=== PATIENT | female | born 1985 | race Caucasian/White ===

== ENCOUNTER 2017-10-30 01:06 | Emergency (ER) | payer OTHER ==
[~2017-10-30] VITALS: Ht 165.1 cm; Wt 102.1 kg
[2017-10-30] MEDS ORDERED: VENL150ER PO (01:20)
[2017-10-30] MEDS ORDERED: TOPI25 PO (01:20)
[2017-10-30] MEDS ORDERED: NIKKI 3 MG-0.01 EACH PO (01:20)
== END 2017-10-30 03:57 | disposition home or self-care (01) ==
LOC: ER 01:06
DX: H53.8 Other visual disturbances (principal); T42.6X5A Adverse effect of other antiepileptic and sedative-hypnotic drugs, initial encounter; Z79.899 Other long term (current) drug therapy; F17.210 Nicotine dependence, cigarettes, uncomplicated
CPT/HCPCS: 70450; 99284

== ENCOUNTER → 2018-02-22 | Outpatient (CLI) | payer OTHER ==
[~2018-02-22] MED LIST: NIKKI 3 MG-0.01 EACH PO; TOPI25 PO; VENL150ER PO
[2018-02-23 14:30] LABS: Candida species (DNA Probe) Negative (NEGATIVE); G. vaginalis (DNA Probe) Negative (NEGATIVE); T. vaginalis (DNA Probe) Negative (NEGATIVE)
== END | disposition home or self-care (01) ==
LOC: LAB SHORT 16:00 → LAB 16:00
PROVIDERS: Physician Assistant
DX: N89.8 Other specified noninflammatory disorders of vagina (principal)
CPT/HCPCS: 87480; 87510; 87660

== ENCOUNTER → 2024-07-03 | Outpatient (CLI) | payer BC | LOC: LAB SHORT 10:20 → LAB 10:20 | DX: L02.211 Cutaneous abscess of abdominal wall (principal) | CPT/HCPCS: 87070; 87077; 87186; 87205 ==

== ENCOUNTER → 2024-08-04 | Outpatient (CLI) | payer BC | LOC: LAB SHORT 14:17 → LAB 14:17 | DX: R30.0 Dysuria (principal) | CPT/HCPCS: 87086 ==

== ENCOUNTER → 2025-02-04 | Outpatient (CLI) | payer BC ==
[~2025-02-04] MED LIST changes: +AFRIN15 M1; +CLON.5 PO; +DESV50 PO; +Loratadine10 MG PO; +MONT10T PO; +OMEP20ER PO; +Oxcarbazepine300 MG PO; +TIZA4 PO; +ZEPBOUND2.5 MG/0.5 SC
[2025-02-04 10:49] LABS: Source, Urine Clean Catch
[2025-02-04 14:18] LABS: Appearance, Urine Clear (Clear); Blood, Urine Neg (Neg); Color, Urine Yellow (P-Yellow); Glucose Qualitative, Urine Neg (Neg); Ketones, Urine Neg (Neg); Leukocyte Esterase, Urine Neg (Neg); Nitrite, Urine Neg (Neg); Protein, Urine 2+ (Neg); Urobilinogen, Urine 1+ (Normal)
[2025-02-04 14:33] LABS: Bilirubin, Urine 1+ (Neg)
[2025-02-04 14:34] LABS: Bacteria Many /hpf; Squamous Epithelial Cells Rare /hpf (Few); White Blood Cells, Urine 0-2 /hpf (0-5)
== END ==
LOC: LAB 10:47 → LAB SHORT 10:47
PROVIDERS: Obstetrics & Gynecology
DX: Z01.812 Encounter for preprocedural laboratory examination (principal)
CPT/HCPCS: 81001; 87086

== ENCOUNTER 2025-02-10 11:10 | Day surgery (SDC) | payer BC ==
[~2025-02-10] VITALS: Ht 165.1 cm; Wt 137.1 kg
[~2025-02-10 11:10] MED LIST changes: +Lactated Ringer's 1,000 ML IV SCH
[2025-02-10] MEDS ORDERED: ALLER-CORT16.9 ML NS (11:39)
[2025-02-10] MEDS ORDERED: PHENA200 PO (11:41)
[2025-02-10] MEDS ORDERED: HYDPAM100 PO (11:42)
[2025-02-10 11:43] VITALS: BP 131/74
[2025-02-10] MEDS ORDERED: propofoL 20 ML IV ONE (11:49)
[2025-02-10] MEDS ORDERED: Ketorolac Tromethamine 30mg Vial ONE (11:56)
[2025-02-10] MEDS ORDERED: FentaNYL Citrate 50 MCG/ML 2 ML Injection ONE (11:56)
[2025-02-10] MEDS ORDERED: Dexamethasone Sod Phos 10 MG/ML 1ML VIAL ONE (11:56)
[2025-02-10] MEDS ORDERED: Ondansetron HCl 2 MG / ML 2ML Vial ONE (11:56)
--- NOTE | 2025-02-10 11:59 | NUR ---
Ambulatory in Day Surgery. History, Chart, Medications and Allergies reviewed before start of procedure. Lungs clear T/O to Auscultation. Patient confirms NPO status and agrees with scheduled surgery. Pre-Op teaching done. Pt verbalizes understanding. Patient States Post-Procedure ride home has been arranged. PT BELONGINGS PLACED UNDERNEATH [facility] FOR SAFEKEEPING.
[2025-02-10] MEDS ORDERED: Silver Nitr/Potassium Nitrate 1 EA APPL ONE ×2 (13:00→13:30)
[2025-02-10 13:23] VITALS: BP 149/83
--- NOTE | 2025-02-10 13:27 | NUR ---
02/10/25 1322 Annika Buitrago FLUID DEFICIT 50ML
[2025-02-10 13:29] VITALS: BP 121/97
[2025-02-10 13:38] VITALS: BP 134/81
--- NOTE | 2025-02-10 13:39 | NUR ---
REPORT RECEIVED FROM CRISTI PADGETT. VSS. PT ON RA. PT A&OX4. PT ABLE TO REPOSITION SELF IN BED. PT REQUESTING PO FOOD AND FLUIDS AND TOLERATING THEM WELL. PT REPORTS ABD CRAMPING THAT IS TOLERABLE. PT DENIES NAUSEA OR OTHER DISCOMFORTS. PT HAS PERIPAD IN PLACE WITH MINIMAL BLOOD DRAINAGE NOTED.
[2025-02-10 13:53] VITALS: BP 132/85
--- NOTE | 2025-02-10 14:05 | NUR ---
Patient up to Ambulate independently. Gait steady. VSS AND CONSISTENT WITH PT BASELINE. PT HAS NO COMPLAINTS AND VERBALIZES READINESS TO GO HOME. Discharge instructions reviewed with patient. Patient verbalizes understanding. Copy given to patient to take home. AIMEE PAD REMAINS IN PLACE WITH MINIMAL DRAINAGE NOTED. Patient States Post-Procedure ride home has been arranged. Discharged via wheelchair to private car for ride home. PT BELONGINGS RETURNED TO PT.
== END 2025-02-10 14:05 | disposition home or self-care (01) ==
LOC: ORSCMMR 11:10 → ORD 12:30 → ORSCMMR 14:05 → ORD 15:00
PROVIDERS: Obstetrics & Gynecology
PROC: 0UDB8ZX Extraction of Endometrium, Via Natural or Artificial Opening Endoscopic, Diagnostic (ICD-10-PCS; principal; 2025-02-10 12:00)
DX: N84.0 Polyp of corpus uteri (principal); K21.9 Gastro-esophageal reflux disease without esophagitis; E66.01 Morbid (severe) obesity due to excess calories; Z68.43 Body mass index [BMI] 50.0-59.9, adult
CPT/HCPCS: 88305; A9270; J1100; J1885; J2405; J2704; J3010; J7120

== ENCOUNTER 2025-06-12 00:26 | Observation (INO) | payer BC ==
[~2025-06-12] VITALS: Ht 165.1 cm; Wt 129.3 kg
[~2025-06-12 00:26] MED LIST changes: +ALLER-CORT16.9 ML NS; +HYDPAM100 PO; -Lactated Ringer's 1,000 ML IV SCH; +PHENA200 PO
[2025-06-12 00:44] VITALS: BP 150/90
[2025-06-12 02:06] LABS: BASOPHILS ABSOLUTE AUTO 0.03 K/mm3 (0.00-0.23); BASOPHILS PERCENT AUTO 0 % (0-2); EOSINOPHILS ABSOLUTE AUTO 0.09 K/mm3 (0.00-0.68); EOSINOPHILS PERCENT AUTO 1 % (0-6); Hematocrit 38.1 % (33.0-51.0); Hemoglobin 13.1 g/dL (11.5-16.0); IMMATURE GRAN ABSOLUTE AUTO 0.09 K/mm3 (0.00-0.10); IMMATURE GRAN PERCENT AUTO 1 % (0-1); LYMPHOCYTES ABSOLUTE AUTO 2.24 K/mm3 (0.84-5.20); LYMPHOCYTES PERCENT AUTO 23 % (21-46); MONOCYTES ABSOLUTE AUTO 0.73 K/mm3 (0.16-1.47); MONOCYTES PERCENT AUTO 8 % (4-13); Mean Corpuscular HGB Conc 34.4 g/dL (31.5-36.5); Mean Corpuscular Volume 85 fL (80-100); NEUTROPHILS ABSOLUTE AUTO 6.49 K/mm3 (1.96-9.15); NEUTROPHILS PERCENT AUTO 67 % (41-73); NRBC ABSOLUTE 0.00 K/mm3 (0.00-0.02); NRBC Auto 0.0 /100 WBC (0.0-0.2); Platelet Count 254 K/mm3 (150-400); RDW Coefficient Variation 12.5 % (11.7-14.2); RDW Standard Deviation 38.8 fL (35.1-46.3)
[2025-06-12 02:22] LABS: Alanine Aminotransfer (ALT/SGP 29.0 U/L (12-78); Albumin, Blood 3.4 g/dL (3.4-5.0); Albumin/Globulin Ratio 1.0 (0.8-1.8); Anion Gap 11.0 mmol/L (3-11); Aspartate Aminotrans (AST/SGOT 21.0 U/L (12-37); Bilirubin, Total 0.5 mg/dL (0.1-1.0); Blood Urea Nitrogen 9.0 mg/dL (8-24); CO2, Blood 24.0 mmol/L (21-32); Calcium, Blood 9.0 mg/dL (8.5-10.1); Chloride, Blood 100.0 mmol/L (98-108); Creatinine, Blood 0.67 mg/dL (0.40-1.00); Ethanol (Alcohol), Blood, Med 5.0 mg/dL; Globulin, Blood 3.5 g/dL (2.2-4.0); Glucose, Blood 88.0 mg/dL (70-99); Potassium, Blood 3.6 mmol/L (3.5-5.5); Sodium, Blood 131.0 mmol/L (136-145); Thyroid Stimulating Hormone 2.87 uIU/mL (0.360-4.800); Total Protein, Blood 6.9 g/dL (6.4-8.2)
[2025-06-12 03:11] LABS: U Amphetamine Screen Not Detected; U Barbituate Screen Not Detected; U Benzodiazapine Screen Not Detected; U Buprenorphine Screen Not Detected; U Cannabinoids Screen Not Detected; U Cocaine Screen Not Detected; U Methadone Screen Not Detected; U Methamphetamine Screen Not Detected; U Opiates Screen Not Detected; U Oxycodone Screen Not Detected; U Phencyclidine Screen Not Detected
[2025-06-12] MEDS ORDERED: Ondansetron 4 MG SoluTab SL ONE (04:10)
[2025-06-12 08:24] LABS: Source, Urine Voided
[2025-06-12 08:35] LABS: Bilirubin, Urine Neg (Neg); Color, Urine Yellow (P-Yellow); Glucose Qualitative, Urine Neg (Neg); Ketones, Urine Neg (Neg); Leukocyte Esterase, Urine Neg (Neg); Protein, Urine 1+ (Neg); Specific Gravity, Urine 1.010 (1.003-1.022); Urobilinogen, Urine NORM (Normal)
[2025-06-12 08:54] LABS: White Blood Cells, Urine 0-2 /hpf (0-5)
[2025-06-12] MEDS ORDERED: Ondansetron HCl 2 MG / ML 2ML Vial ONE (10:15)
[2025-06-12] MEDS ORDERED: KETO10 PO (12:26)
== END 2025-06-12 11:10 | disposition other institution (70) ==
LOC: ER 00:26 → EOR 00:27
PROVIDERS: ADMIT Emergency Medicine
DX: F32.A Depression, unspecified (principal); F41.1 Generalized anxiety disorder; K21.9 Gastro-esophageal reflux disease without esophagitis; F17.210 Nicotine dependence, cigarettes, uncomplicated; Z88.0 Allergy status to penicillin; Z88.8 Allergy status to other drugs, medicaments and biological substances; Z79.899 Other long term (current) drug therapy
CPT/HCPCS: 80053; 80320; 81001; 84443; 84703; 85025; 93005; 93010; 99285-25; A9270; G0378; J2405

== ENCOUNTER 2025-06-12 08:25 | Inpatient (IN) | payer BC ==
[~2025-06-12] VITALS: Ht 165.1 cm; Wt 127.5 kg
[2025-06-12] MEDS ORDERED: Aluminum Hydroxide 320MG/5ML 473 ML PO PRN (11:25)
[2025-06-12 11:29] VITALS: BP 141/88
[2025-06-12] MEDS ORDERED: Polyethylene Glycol 3350 17 gm PO PRN (11:30)
[2025-06-12] MEDS ORDERED: Ondansetron 4 MG SoluTab MM PRN (11:30)
[2025-06-12 11:49] VITALS: BP 141/88
[2025-06-12] MEDS ORDERED: KETO10 PO (12:26)
--- NOTE | 2025-06-12 17:08 | NUR ---
SHIFT SUMMARY NO ACUTE EVENTS SINCE ADMIT. PT DENIES SI, HI, AVTH AT THIS TIME. OUTSIDE INTERACTING W/ PEERS AT THIS TIME. PT STATED THAT SHE HAS INTERMITTENTLY DEALT W/ FLEETING SI T/O LIFE, BUT RECENTLY D/T "WORK PRESSURES" AND OTHER TRIGGERING EVENTS (PT DID NOT ELABORATE), CAUSED HER ANXIETY AND SI TO PEAK. STATES SHE HAS A STRONG SUPPORT SYSTEM WHO SHE CAN "USUALLY" RELY ON, BUT THIS TIME SHE HAD NOT REACHED OUT.
[2025-06-12 19:17] VITALS: BP 128/89
--- NOTE | 2025-06-13 04:26 | NUR ---
SHIFT SUMMARY: PT A/O X4. ENDORSES SI . PT STATES IT HAS BEEN GOING ON MORE LATELY WITH STRESSORS IN WORK AND LIFE. DENIES HI AND ATH. PT IS OPEN IN TALKING ABOUT HER ISSUES. HER SI IS IN PASSIVE THOUGHTS MOSTLY. SHE KNOWS THAT SHE WILL OVERCOME THIS ISSUE ONCE AGAIN. MOOD IS LABILE, AFFECT IS GUARDED. 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 PT EXPRESSES THAT THIS ILLNESS WILL NOT GET ANY BETTER WITH TIME. PT IS HAPPY THAT THE THE DOCTOR LISTENED TO HER AND PUT HER BACK ON PROZAC. SHE FEELS THIS WILL HELP HER. PT REQUESTED TO TAKE HER TRAZODONE AND MELATONIN FOR SLEEP. WILL CONTINUE TO MONITOR Q 15 MIN
[2025-06-13 07:53] LABS: CHOL/HDL RATIO 3.0; Cholesterol 136 mg/dL (50-200); HDL Cholesterol 46 mg/dL (>39); LDL/HDL RATIO 1.5; Low Density Lipoprotein Chol 69 mg/dL (0-110); Triglycerides 106 mg/dL (30-140); Very Low Density Lipoprot Chol 21 mg/dL (6-28)
[2025-06-13 08:32] VITALS: BP 121/75
[2025-06-13] MEDS ORDERED: Multivitamins 1 Tab PO SCH (09:00)
[2025-06-13] MEDS ORDERED: Oxymetazoline 0.05% Nasal Relief Spray 15mL BTL PRN (11:20)
[2025-06-13] MEDS ORDERED: Fluticasone 0.05% Nasal Spray PRN (11:30)
--- NOTE | 2025-06-13 16:52 | NUR ---
SHIFT SUMMARY DENIES SI, HI, AVTH AT THIS TIME. PLEASANT AND COOPERATIVE. ATTENDED GROUPS, ATE MEALS, AND WAS IN DAY ROOM WORKING ON PUZZLE. NO ACUTE EVENTS TODAY. TREATING CHRONIC BLADDER PAIN FOR PT PER DEC.
[2025-06-13 19:41] VITALS: BP 112/75
--- NOTE | 2025-06-14 05:04 | NUR ---
SHIFT SUMMARY: PATIENT WAS ON THE PATIO AT THE BEGINNING OF THE SHIFT, READING A BOOK. SHE WAS ABLE TO ANSWER INSTRUMENTATION AND CONTROLS TECHNICIAN QUESTIONS IN A LOGICAL AND LINEAR MANNER. SHE STATED THAT SHE "NEVER DID FEEL SUICIDAL, BUT IT'S THIS LOW UNDERLYING THING THAT'S ALWAYS THERE. I DON'T WANT TO ACTUALLY KILL MYSELF, BUT SOMETIMES I FEEL LIKE I WOULD BE BETTER OFF IF I WEREN'T IN THIS WORLD. I JUST WANT THE PAIN TO GO AWAY." SHE STATED THAT SHE IS "GLAD TO BE HERE. THIS ENVIRONMENT FEELS SO SAFE" AND THAT "I'VE LEARNED COPING SKILLS TO HELP ME THROUGH THE HARD TIMES." SHE DENIED SUICIDAL IDEATION, THOUGHTS OF SELF HARMING AND A/V/T HALLUCINATIONS. SHE STATED THAT SHE IS "GLAD TO BE BACK ON PROZAC" AND "I FIND IT TO BE HELPFUL". SHE DID NOT LIKE HER LAST MEDICATION, SHE STATED. SHE PARTICIPATED IN SNACK AND WRAP UP GROUP AT 2030 IN THE DINING AREA, AND WAS COMPLIANT WITH EVENING MEDICATIONS. SHE SPENT SOME MORE TIME READING, AND THEN WENT TO BED, WHERE SHE WAS NOTED TO BE RESTING QUIETLY WITH EYES CLOSED AND RESPIRATIONS CONFIRMED FOR THE REMAINDER OF THE SHIFT. CONTINUING TO MONITOR FOR SAFETY WITH Q15 MINUTE CHECKS.
[2025-06-14 09:13] VITALS: BP 117/83
--- NOTE | 2025-06-14 16:54 | NUR ---
SHIFT SUMMARY NO ACUTE EVENTS TODAY. PT DENIES SI, HI, AVTH. VISITING W/ FRIENDS AT THIS TIME. PT LAUGHING W/ FRIENDS, INTERACTING W/ STAFF, AND STATES SHE FEELS, "BETTER". ATE MEALS. COMPLAINED OF CONSTIPATION, TREATED PER EMAR.
[2025-06-14 19:19] VITALS: BP 133/88
--- NOTE | 2025-06-15 04:43 | NUR ---
SHIFT SUMMARY: PATIENT WAS ON THE PATIO WITH A BOOK AT THE BEGINNING OF THE SHIFT. SHE AGREED TO TALK WITH RN, AND WAS ABLE TO ANSWER ASSESSMENT QUESTIONS IN A LOGICAL AND LINEAR MANNER. SHE STATED, "PLEASE DON'T WAKE ME UP TO GIVE ME MY PRILOSEC. I TAKE IT WITH MY MORNING MEDS AT HOME AND WANT TO HERE WELL. THE PROBLEM IS, ONCE I WAKE UP, I HAVE A HARD TIME GOING BACK TO SLEEP." SHE DENIED SUICIDAL IDEATION, THOUGHTS OF SELF HARMING AND A/V/T HALLUCINATIONS. SHE STATED THAT SHE IS "LEARNING A LOT" HERE, AND THAT SHE WOULD LIKE 1:1 TIME WITH SW IF POSSIBLE BEFORE SHE GOES. SHE STATED THAT AT HOME, SHE SEES A THERAPIST ONCE A WEEK, AND THAT IT IS "VERY HELPFUL IN GETTING ME GROUNDED". SHE STATED THAT SHE WISHES SHE COULD "GO BACK TO WORK SLOWLY, BUT I KNOW I'LL HAVE TO DIVE RIGHT IN". SHE DID STATE THAT SHE ENJOYS HER JOB AND CO-WORKERS, JUST THAT "IT IS HECTIC". SHE HAD C/O CONSTIPATION EARLIER IN THE DAY, BUT STATED, "THAT'S PRETTY MUCH RESOLVED NOW". SHE PARTICIPATED IN SNACK AND WRAP UP GROUP AT 2030 IN THE DINING AREA, AND WAS COMPLIANT WITH EVENING MEDICATIONS. SHE WENT TO HER ROOM AFTER SNACK TO READ, AND THEN WAS NOTED TO BE RESTING QUIETLY IN BED WITH EYES CLOSED AND RESPIRATIONS CONFIRMED FOR THE REMAINDER OF THE SHIFT. CONTINUING TO MONITOR FOR SAFETY WITH Q15 MINUTE CHECKS.
[2025-06-15 09:10] VITALS: BP 115/71
--- NOTE | 2025-06-15 17:09 | NUR ---
SHIFT SUMMARY NO ACUTE EVENTS TODAY. DENIES SI, HI, AVTH. SAYS "YEA" WHEN ASKED IF SHE'S OK AND DOING GOOD (ASKED D/T HER SLEEPING/BEING IN HER ROOM FOR SEVERAL HOURS DURING DAY. PT STATED THAT HER KLONOPIN JUST MADE HER "SLEEPY" AND SHE'S JUST ENJOYING A LAZY MONDAY. CURRENTLY IN DAYROOM WATCHING TV W/ PEERS.
[2025-06-15 20:46] VITALS: BP 124/80
--- NOTE | 2025-06-16 04:32 | NUR ---
SHIFT SUMMARY PATIENT UP IN MILIEU VISITING WITH STAFF AND PEERS. PATIENT VERBALIZED THAT SHE CONTINUES TO HAVE SI THOUGHTS WITH PLAN TO OD ON MEDICATIONS, DENIES URGE TO HARM SELF OR OD WHILE HERE. VERBALIZED THAT SHE DOESN'T NEED SOMEONE TO GO TO HER HOME AND REMOVE ANY MEDICATIONS FOR WHEN SHE GOES HOME. STATING "I WANT TO LIVE". DENIES HI OR AVH. C/O NO BM FOR LAST 4 DAYS AND ONLY SMALL RESULTS WITH MIRALAX. REQUESTING PYRIDIUM AND KETOROLAC FOR BLADDER PAIN. ALSO REQUESTING TRAZODONE AND MELATONIN FOR SLEEP AID, REQUIRING 2ND TRAZODONE LATER IN THE EVENING. PATIENT REQUESTING NOT TO BE AWAKENED FOR 0600 DOSE OF PRILOSEC WANTING TO TAKE IT WITH AM MEDICATIONS DUE TO NOT BEING ABLE TO GO BACK TO SLEEP ONCE AWAKENED IN THE MORNING. PATIENT APPEARS TO BE SLEEPING WELL T/O NIGHT RESP EVEN AND UNLABORED. CONTINUE TO MONITOR Q15MIN
[2025-06-16 09:25] VITALS: BP 130/72
--- NOTE | 2025-06-16 14:45 | NUR ---
SHIFT ASSESSMENT: PT DENIED SI, HI AND AVH. SHE ENDORSED ANXIETY 7/10w, PT WAS ENCOURAGED TO USE COPING SKILLS TO REDUCE ANXIETY, IF UNSUCCESSFU SHE WILL ASK FOR MEDICATION. PT DESCRIBED HE MOOD , "ANXIOUS." GOALS FOR TODAY ARE, "TALK TO LEIF AND PRACTICE RELAXATIONS TECHNIQUES." SHE ASKED FOR AND WAS GIVEN PYRIDIUM AND MIRALAX WITH THE MIRALAX IN MILK. PT LATER REPORTED THAT SHE HAD A BM. PT IS PRESENTLY MEETING WITH [facility]ERSON[facility].
--- NOTE | 2025-06-16 15:16 | NUR ---
Upon receiving a referral for spiritual care, I visited the patient. She talks about her anxiety, SI and fears. We mostly discuss these issues from the spiritual distress in which she brings them up. I provided therapeutic listening, spiriutal guidance and prayer. The patient repsonded well and displayed evidence of greater peace and clarity about her next steps moving forward.
--- NOTE | 2025-06-16 18:26 | NUR ---
PT HAS BEEN PRESENT IN THE PT MILIEU TODAY. SHE APPEARS TO BE IN GOOD HUMOR THIS AFTERNOON. SHE HAD A VISIT FROM SPIRITUAL AND THE VISIT SEEMED TO GO WELL.
[2025-06-16 20:56] VITALS: BP 132/85
--- NOTE | 2025-06-17 06:02 | NUR ---
SHIFT SUMMARY Sander Setter assumed patient care at 0015. Pt was in Sensory Room, A&O, calm, cooperative. Pt retired to her room at 0020. By 0045, pt was lying on her bed with eyes closed and appeared to be asleep, no apparent distress. Staff continues to monitor q15m for safety and wellness per unit protocol.
[2025-06-17 09:14] VITALS: BP 135/83
--- NOTE | 2025-06-17 15:09 | NUR ---
PT WAS SCHEDULED TO SEE HER THERAPIST ALLYSSA TELLEZ TODAY, SHE REQUESTED WE CANCEL THIS APPOINTMENT, THIS WAS DONE, PT HAS NEXT APPT SCHEDULED FOR 06/24 AT 1705. THEIR CONTACT NUMBER IS [phone].
--- NOTE | 2025-06-17 16:30 | NUR ---
SHIFT SUMMARY PT A/O X4; PLEASANT AND COOPERATIVE WITH CARE. SHE DENIES SI, HI, AVTH. SHE REPORTS BEING MORE CALM TODAY AND FEELS THAT SHE IS DOING WELL. SHE HAS ATTENDED ALL GROUPS, MEALS, AND INTERACTS APPROPRIATELY WITH HER PEERS. SHE CONTINUES TO BE MONITORED Q15 FOR SAFETY AND WELLNESS.
[2025-06-17 20:47] VITALS: BP 131/75
--- NOTE | 2025-06-18 04:33 | NUR ---
SHIFT SUMMARY: PATIENT WAS IN HER ROOM RESTING AT THE BEGINNING OF THE SHIFT. SHE AWAKENED TO HER NAME STATED SOFTLY, AND WAS ABLE TO PARTICIPATE IN ADULT EDUCATION TEACHER WITH LOGICAL AND LINEAR ANSWERS. SHE DENIED SUICIDAL IDEATION, THOUGHTS OF SELF HARMING AND A/V/T HALLUCINATIONS. SHE STATED, "I FEEL NERVOUS ABOUT LEAVING. I'M ANXIOUS ABOUT GOING BACK TO WORK. I WISH THERE WAS A WAY TO EASE BACK INTO IT, BUT THERE ISN'T." SHE STATED, "I'M LEARNING A LOT HERE. I REALLY ENJOY THE GROUPS." SHE PARTICIPATED IN SNACK AND WRAP UP GROUP AT 2030 IN THE DINING AREA, AND WAS COMPLIANT WITH EVENING MEDICATIONS. SHE REQUESTED AND WAS GIVEN TRAZODONE FOR INSOMNIA. SHE WAS UPSET THAT HER TORADOL WAS DISCONTINUED, BUT TOOK PYRIDIUM FOR BLADDER PAIN, WHICH WAS EFFECTIVE. SHE REQUESTED A SECOND TRAZODONE, AND ALSO TOOK A MELATONIN "TO MAKE ME SLEEPY". SHE GOT UP SHORTLY AFTER GOING TO BED, AND REQUESTED HYDROXYZINE FOR ANXIETY 4 ON THE MASS SCALE. SHE THEN WENT BACK TO BED AND WAS NOTED TO BE RESTING QUIETLY WITH EYES CLOSED AND RESPIRATIONS CONFIRMED FOR THE REMAINDER OF THE SHIFT. SHE REQUESTED TO NOT BE AWAKENED FOR HER 0600 MEDICATION. CONTINUING TO MONITOR FOR SAFETY WITH Q15 MINUTE CHECKS.
[2025-06-18 08:05] VITALS: BP 129/88
[2025-06-18 13:42] LABS: Source, Urine Clean Catch
[2025-06-18 13:45] LABS: Bilirubin, Urine Neg (Neg); Color, Urine Yellow (P-Yellow); Glucose Qualitative, Urine Neg (Neg); Ketones, Urine Neg (Neg); Leukocyte Esterase, Urine Neg (Neg); Protein, Urine Neg (Neg); Specific Gravity, Urine 1.010 (1.003-1.022); Urobilinogen, Urine NORM (Normal)
--- NOTE | 2025-06-18 17:45 | NUR ---
SHIFT SUMMARY PT AOX4. COMPLIANT WITH TREATMENT. ENDORSES SUICIDAL THOUGHTS, BUT STATES THEY ARE MINOR AND FLEETING. DENIES HI AND AVTH. STATES THAT SHE IS FEELING CALM AGAIN TODAY AND THAT SHE WOULD LIKE TO BEGIN TALKING ABOUT DISCHARGE PLANNING. SHE HAS ATTENDED ALL MEALS,GROUPS, AND HAS INTERACTED APPROPRIATELY WITH HER PEERS ON THE UNIT. CONTINUES TO BE MONITORED Q15 MINUTES FOR SAFETY AND WELLNESS.
[2025-06-18 19:45] VITALS: BP 112/66
--- NOTE | 2025-06-19 04:45 | NUR ---
SHIFT SUMMARY: PATIENT WAS IN THE MILIEU WORKING ON A PUZZLE WITH PEERS AT THE BEGINNING OF THE SHIFT. SHE WAS PLEASANTLY TALKING AND LAUGHING WITH THE OTHERS. SHE WAS ABLE TO ANSWER ROTARY DRILL RIG OPERATOR QUESTIONS IN A LOGICAL AND LINEAR MANNER. SHE DENIED SUICIDAL IDEATION, THOUGHTS OF SELF HARMING AND A/V/T HALLUCINATIONS. SHE STATED, "I'M STILL NERVOUS ABOUT LEAVING, BUT I'M GETTING A HANDLE ON IT." SHE STATED SHE HAD SOME PAIN TODAY FROM HER BLADDER CONDITION AND WAS "GLAD TO HAVE MY TORADOL BACK." SHE PARTICIPATED IN SNACK AND WRAP UP GROUP, AND WAS COMPLIANT WITH EVENING MEDICATIONS. SHE REQUESTED TRAZODONE FOR INSOMNIA, AND LATER A SECOND TRAZODONE AND MELATONIN. SHE REQUESTED PYRIDIUM AND TORADOL FOR BLADDER PAIN/SPASMS, WHICH WERE EFFECTIVE. SHE LATER REQUESTED A VISTARIL FOR ANXIETY MASS SCORE OF 4, WHICH WAS EFFECTIVE. SHE WENT TO BED SHORTLY AFTER THAT TIME,AND WAS NOTED TO BE RESTING QUIETLY WITH EYES CLOSED AND RESPIRATIONS CONFIRMED FOR THE REMAINDER OF THE SHIFT. CONTINUING TO MONITOR FOR SAFETY WITH Q15 MINUTE CHECKS.
[2025-06-19 09:00] VITALS: BP 120/77
--- NOTE | 2025-06-19 17:10 | NUR ---
SHIFT ASSESSMENT PATIENT AOX4 AND COMPLIANT WITH TREATMENT. PT DID REFUSE HER MORNING DOSE OF KLONOPIN DUE TO SEDATION. PT SEEMED FLAT AND WITHDRAWN TODAY. ATTENDED ALL MEALS AND GROUPS, BUT DID NOT INTERACT WITH PEERS OUTSIDE OF GROUPS. PT DENIED SI, HI, AND AVTH. PT ENDORSED WANTING TO BEGIN DISCHARGE PLANNING. CONTINUES TO BE MONITERED Q15 MINUTES FOR SAFETY AND CARE.
--- NOTE | 2025-06-20 04:25 | NUR ---
SHIFT SUMMARY: PATIENT WAS IN THE MILIEU AT THE BEGINNING OF THE SHIFT. SHE WAS PLAYING A GAME WITH PEERS AND WAS LAUGHING AND JOKING INTERACTIVELY WITH THEM. SHE WAS ABLE TO ANSWER PHYSICIAN GENERAL INTERNAL MEDICINE QUESTIONS IN A LOGICAL AND LINEAR MANNER. SHE DENIED SUICIDAL IDEATION, STATING, "I STILL GET THOSE FEELINGS, BUT I HAVE A LOT OF COPING SKILLS, AND I KNOW I HAVE PEOPLE I CAN CALL." SHE STATED, "I WILL CONTINUE MY WEEKLY THERAPY, AND MY JOURNALING." SHE STATED, "THE WHOLE EXPERIENCE HAS BEEN GREAT. I HAVE TO SAY THAT THE GROUPS AND MAKING FRIENDS WERE TWO THINGS THAT WERE UNEXPECTEDLY GREAT." SHE PARTICIPATED IN SNACK AND WRAP UP GROUP, AND WAS COMPLIANT WITH EVENING MEDICATIONS. SHE REQUESTED TRAZODONE FOR INSOMNIA, WHICH WAS SOMEWHAT EFFECTIVE, BUT SHE REQUESTED A SECOND ONE, WHICH WAS COMPLETELY EFFECTIVE IN HELPING HER REST. SHE REQUESTED MELATONIN FOR SLEEPINESS, WHICH WAS EFFECTIVE. SHE STATED THAT HER INTERSTITIAL CYSTITIS WAS BOTHERING HER, AND SHE WANTED PYRIDIUM AND TORADOL, WHICH WERE EFFECTIVE IN ALLEVIATING THE PAIN. SHE GOT UP LATER IN THE EVENING TO REQUEST VISTARIL FOR ANXIETY, MASS SCORE OF 4. THE VISTARIL WAS EFFECTIVE. SHE WAS NOTED TO SPEND THE REMAINDER OF THE SHIFT IN BED RESTING WITH EYES CLOSED AND RESPIRATIONS CONFIRMED. CONTINUING TO MONITOR FOR SAFETY WITH Q15 MINUTE CHECKS.
--- NOTE | 2025-06-20 08:37 | NUR ---
IMPORTANT DISCHARGE INFORMATION PATIENT TO BE DISCHARGED TODAY. HER VEHICLE IS PARKED IN THE ED AND SHE WILL DRIVE HERSELFE HOME. SHE IS REQUESTING TO BE DISCHARGED AROUND 10AM. ALL PARTIES VERBALIZE AN UNDERSTANDING OF TODAYS DISCHARGE. FOLLOW UP WITH TEVIN ZAMORA NP ON 06/24/25 AT 11:30AM. FOLLOW UP WITH YOUR MENTAL HEALTH PROVIDER PHARMACY: [facility] FAX NUMBER [phone] RESOURCES: RESIDENTIAL AND OUT PATIENT TREATMENT FOR CONTINUED SUPPORT.
[2025-06-20] MEDS ORDERED: TIZA4 PO (08:38)
[2025-06-20] MEDS ORDERED: FLUO10 PO (08:39)
[2025-06-20] MEDS ORDERED: Prozac20 MG PO (08:40)
[2025-06-20] MEDS ORDERED: FLONASE SENSIM5.9 M1 (08:46)
[2025-06-20] MEDS ORDERED: OMEP20ER PO (08:59)
[2025-06-20 09:00] VITALS: BP 113/76
--- NOTE | 2025-06-20 15:38 | NUR ---
DISCHARGE SUMMARY: 06/20/25, 1000 Patient was discharged to home, transported by self. Patients safety plan had been completed prior to dc. She denies thoughts of SI at time of discharge. Patient was educated on the discharge forms including: medications, medical records, post dc appt's. and patient educational sheets on MH conditions and medications. Patients belonings were returned, including her phone which was in the safe. patient signed for her belongings, changed clothings and left the facility at 10am.
== END 2025-06-20 10:15 | disposition home or self-care (01) | DRG 880 ==
LOC: BHU 08:25
PROVIDERS: ADMIT Psychiatry & Neurology Psychiatry
DX: F41.9 Anxiety disorder, unspecified (principal); R45.851 Suicidal ideations; K21.9 Gastro-esophageal reflux disease without esophagitis; Z79.899 Other long term (current) drug therapy
CPT/HCPCS: 36415; 80061; 81003; 83036; A9270